=== PATIENT | male | born 2000 | race African-American/Black ===

== ENCOUNTER 2025-05-15 11:50 | Emergency (ER) | payer OTHER ==
[~2025-05-15] VITALS: Ht 172.7 cm; Wt 75.0 kg
[2025-05-15 11:52] VITALS: O2SAT 99
[2025-05-15] MEDS: LEVETIRACETAM 1000MG PREMIX 100 ML IV ONE (12:11)
[2025-05-15 15:39] VITALS: BP 110/62; PULSE 82; RESP 18; TEMP 36.5; O2SAT 100
== END 2025-05-15 15:40 | disposition home or self-care (01) ==
LOC: ER 12:41
DX: S00.81XA Abrasion of other part of head, initial encounter (principal); S60.511A Abrasion of right hand, initial encounter; G40.909 Epilepsy, unspecified, not intractable, without status epilepticus; I10 Essential (primary) hypertension; Z91.148 Patient's other noncompliance with medication regimen for other reason; X58.XXXA Exposure to other specified factors, initial encounter; Y93.89 Activity, other specified; Y92.89 Other specified places as the place of occurrence of the external cause; Y99.8 Other external cause status
CPT/HCPCS: 99285; 70450; 96365; 73130; 70486; 93005; J1953

== ENCOUNTER 2025-08-26 09:06 | Emergency (ER) | payer SELFPAY ==
[~2025-08-26] VITALS: Ht 172.7 cm; Wt 66.0 kg
[2025-08-26 09:08] VITALS: O2SAT 99
[2025-08-26 09:09] VITALS: BP 107/73; PULSE 60; RESP 18; TEMP 36.6; O2SAT 99
[2025-08-26] MEDS ORDERED: LEVE1000 MT (09:36)
== END 2025-08-26 10:15 | disposition home or self-care (01) ==
LOC: ER 09:06
DX: R56.9 Unspecified convulsions (principal); Z76.0 Encounter for issue of repeat prescription
CPT/HCPCS: 99282

== ENCOUNTER 2025-10-10 16:21 | Emergency (ER) | payer BC, MEDICAID ==
[~2025-10-10] VITALS: Ht 175.3 cm; Wt 65.0 kg
[~2025-10-10 16:21] MED LIST: LEVE1000 MT
[2025-10-10 16:38] VITALS: O2SAT 100
[2025-10-10] MEDS ORDERED: LEVE1000 MT (18:32)
[2025-10-10] MEDS: LEVETIRACETAM 500MG TABLET PO ONE (18:46)
[2025-10-10 18:47] VITALS: BP 115/70; PULSE 75; RESP 16; TEMP 36.7; O2SAT 100
== END 2025-10-10 18:48 | disposition home or self-care (01) ==
LOC: ER 16:21
DX: G40.909 Epilepsy, unspecified, not intractable, without status epilepticus (principal); Z76.0 Encounter for issue of repeat prescription; Z79.899 Other long term (current) drug therapy
CPT/HCPCS: 99283